=== PATIENT | male | born 1965 | race Caucasian/White ===

== ENCOUNTER 2022-07-06 10:23 | Emergency (ER) | payer OTHER ==
[~2022-07-06] VITALS: Ht 172.7 cm; Wt 78.0 kg
[2022-07-06 10:33] VITALS: BP 122/75
[2022-07-06] MEDS ORDERED: PSEU120T22 PO (10:58)
[2022-07-06] MEDS ORDERED: IBUP-2213 PO (10:58)
[2022-07-06] MEDS ORDERED: PRED20TA5 PO (10:58)
[2022-07-06 11:06] VITALS: BP 122/75
--- NOTE | 2022-07-06 11:06 | NUR ---
Patient discharged with v/s stable. Written and verbal after care instructions given and explained. Patient alert, oriented and verbalized understanding of instructions. Ambulatory with steady gait. All questions addressed prior to discharge. ID band removed. Patient advised to follow up with PMD. Rx of ibuprofen, prednisone, sudafed (sent) given. Patient educated on indication of medication including possible reaction and side effects. Opportunity to ask questions provided and answered.
== END 2022-07-06 11:06 | disposition home or self-care (01) ==
LOC: MED 10:23
DX: H92.01 Otalgia, right ear (principal); R05.9 Cough, unspecified; R09.81 Nasal congestion
CPT/HCPCS: 99283